=== PATIENT | male | born 1985 | race Caucasian/White ===

== ENCOUNTER 2018-02-26 16:07 | Emergency (ER) | payer MEDICAID, OTHER ==
[2018-02-26] MEDS: HYDROCODONE/APAP (5/325) TAB PO (17:12)
[2018-02-26] MEDS: KETOROLAC 60 MG INJ IM (17:23)
[2018-02-26] MEDS: LIDOCAINE 1% (MDV) 10 ML INJ INJ (17:24)
[2018-02-26] MEDS ORDERED: LIDOCAINE 1% (MDV) 20 ML INJ SC (17:30)
== END 2018-02-26 17:58 | disposition home or self-care (01) ==
LOC: FTE 16:07
DX: K04.7 Periapical abscess without sinus (principal)
CPT/HCPCS: 41800; 96372; 99284-25

== ENCOUNTER 2018-06-30 11:27 | Emergency (ER) | payer SELFPAY, MEDICAID ==
[2018-06-30] MEDS: HYDROCODONE/APAP (5/325) TAB PO (13:09)
== END 2018-06-30 14:07 | disposition home or self-care (01) ==
LOC: FTE 11:27
DX: S82.892A Other fracture of left lower leg, initial encounter for closed fracture (principal); S62.102A Fracture of unspecified carpal bone, left wrist, initial encounter for closed fracture; S90.01XA Contusion of right ankle, initial encounter; S90.511A Abrasion, right ankle, initial encounter; W01.0XXA Fall on same level from slipping, tripping and stumbling without subsequent striking against object, initial encounter; Y92.9 Unspecified place or not applicable
CPT/HCPCS: 73610; 73610-RT; 99283-25

== ENCOUNTER 2018-11-11 09:29 | Inpatient (IN) | payer MEDICAID ==
[2018-11-11] MEDS: LIDOCAINE 1% (MPF) 5 ML VIAL INFIL (10:27)
[2018-11-11 13:45] LABS: ADD MAN DIFF? NO
[2018-11-11] MEDS: CEFTRIAXONE 1 GM/50 ML (PMX) 50 ML IVPB (13:56)
[2018-11-11] MEDS: SOD CHLORIDE 0.9% 1,000 ML IV ×2 (13:57→18:39)
[2018-11-11 13:59] LABS: WHITE BLOOD COUNT 9.2 10^3/ul (4.8-10.8)
[2018-11-11 13:59] LABS: BASOPHILS % 0.4 % (0.0-2.0); EOSINOPHILS # 0.1 10^3/ul (0.0-0.5); EOSINOPHILS % 0.8 % (0.0-7.0); HEMATOCRIT 49.5 % (42.0-52.0); HEMOGLOBIN 16.7 g/dl (14.0-18.0); LYMPHOCYTES # 3.8 10^3/ul (0.8-2.9); LYMPHOCYTES % 41.1 % (15.0-51.0); MEAN CORPUSCULAR HEMOGLOBIN 28.4 pg (29.0-33.0); MEAN CORPUSCULAR HGB CONC 33.7 g/dl (32.0-37.0); MEAN CORPUSCULAR VOLUME 84.3 fl (82.0-101.0); MEAN PLATELET VOLUME 10.7 fl (7.4-10.4); MONOCYTE # 0.8 10^3/ul (0.3-0.9); MONOCYTES % 8.8 % (0.0-11.0); NEUTROPHIL # 4.5 10^3/ul (1.6-7.5); NEUTROPHILS % 48.5 % (39.0-77.0); PLATELET COUNT 293 10^3/UL (140-415); RED BLOOD COUNT 5.87 10^6/ul (4.70-6.10); RED CELL DISTRIBUTION WIDTH 13.5 % (11.5-14.5)
[2018-11-11 14:17] LABS: ALANINE AMINOTRANSFERASE 26 IU/L (13-69); ALBUMIN/GLOBULIN RATIO 1.11; ALKALINE PHOSPHATASE 105 IU/L (42-121); ANION GAP 16 (5-13); ASPARTATE AMINO TRANSFERASE 31 IU/L (15-46); BILIRUBIN,INDIRECT 0.3 mg/dl (0-1.1); BILIRUBIN,TOTAL 0.3 mg/dl (0.2-1.3); BLOOD UREA NITROGEN 13 mg/dl (7-20); CARBON DIOXIDE 28 mmol/L (21-31); CHLORIDE 98 mmol/L (97-110); CREATININE 0.89 mg/dl (0.61-1.24); Estimated GFR > 60 mL/min (>60); GLUCOSE 94 mg/dl (70-220); POTASSIUM 4.1 mmol/L (3.5-5.1); SODIUM 142 mmol/L (135-144); TOTAL PROTEIN 9.5 g/dl (6.1-8.1)
[2018-11-11] MEDS: VANCOMYCIN 1 GM (PMX) 250 ML IVPB (14:29)
[2018-11-11 14:36] LABS: C-REACTIVE PROTEIN < 0.5 mg/dl (0.0-0.9)
[2018-11-11] MEDS: ONDANSETRON 4 MG INJ IV (15:16)
[2018-11-11] MEDS: morphine 4 MG/ML VIAL IV (15:17)
[2018-11-11] MEDS ORDERED: ACETAMINOPHEN 325 MG TAB PO ×2 (15:30→17:00)
[2018-11-11] MEDS ORDERED: ONDANSETRON 4 MG INJ IV ×2 (15:30→17:00)
[2018-11-11 15:37] LABS: ERYTHROCYTE SEDIMENTATION RATE 15 mm/Hr (0-15)
[2018-11-11] MEDS ORDERED: morphine 2 MG INJ IV (17:00)
[2018-11-11] MEDS ORDERED: BISACODYL (EC) 5 MG TAB PO (17:00)
[2018-11-11] MEDS ORDERED: NACL 0.9% 3 ML SYG IV (17:00)
[2018-11-11] MEDS ORDERED: MAGNESIUM HYDROXIDE 30ML CUP PO (17:00)
[2018-11-11] MEDS ORDERED: DOCUSATE SODIUM 100 MG CAP PO (17:00)
[2018-11-11] MEDS ORDERED: VANCOMYCIN IV PER PHARMACY XX (19:00)
[2018-11-11] MEDS: PIPER-TAZO 3.375 GM IV (PMX) 100 ML IVPB ×2 (20:50→23:36)
[2018-11-11] MEDS: VANCOMYCIN 1 GM 250 ML IVPB (22:20)
[2018-11-12] MEDS: PIPER-TAZO 3.375 GM IV (PMX) 100 ML IVPB ×3 (05:02→18:17)
[2018-11-12] MEDS: VANCOMYCIN 1 GM 250 ML IVPB ×2 (05:40→15:23)
[2018-11-12] MEDS: SOD CHLORIDE 0.9% 1,000 ML IV ×2 (05:51→11:04)
[2018-11-12 06:28] LABS: ADD MAN DIFF? NO
[2018-11-12 06:39] LABS: WHITE BLOOD COUNT 6.2 10^3/ul (4.8-10.8)
[2018-11-12 06:39] LABS: BASOPHILS % 0.3 % (0.0-2.0); EOSINOPHILS # 0.1 10^3/ul (0.0-0.5); EOSINOPHILS % 1.1 % (0.0-7.0); HEMATOCRIT 40.8 % (42.0-52.0); HEMOGLOBIN 13.4 g/dl (14.0-18.0); LYMPHOCYTES # 2.4 10^3/ul (0.8-2.9); LYMPHOCYTES % 38.6 % (15.0-51.0); MEAN CORPUSCULAR HEMOGLOBIN 28.5 pg (29.0-33.0); MEAN CORPUSCULAR HGB CONC 32.8 g/dl (32.0-37.0); MEAN CORPUSCULAR VOLUME 86.8 fl (82.0-101.0); MONOCYTE # 0.7 10^3/ul (0.3-0.9); NEUTROPHILS % 48.7 % (39.0-77.0); PLATELET COUNT 248 10^3/UL (140-415); RED CELL DISTRIBUTION WIDTH 13.5 % (11.5-14.5)
[2018-11-12 07:19] LABS: ALANINE AMINOTRANSFERASE 28 IU/L (13-69); ALBUMIN 3.6 g/dl (3.3-4.9); ALBUMIN/GLOBULIN RATIO 1.05; ALKALINE PHOSPHATASE 81 IU/L (42-121); ANION GAP 12 (5-13); ASPARTATE AMINO TRANSFERASE 19 IU/L (15-46); BILIRUBIN,INDIRECT 0.1 mg/dl (0-1.1); BILIRUBIN,TOTAL 0.1 mg/dl (0.2-1.3); BLOOD UREA NITROGEN 15 mg/dl (7-20); CALCIUM 8.8 mg/dl (8.4-10.2); CARBON DIOXIDE 25 mmol/L (21-31); CHLORIDE 104 mmol/L (97-110); CREATININE 0.94 mg/dl (0.61-1.24); Estimated GFR > 60 mL/min (>60); GLUCOSE 104 mg/dl (70-220); POTASSIUM 4.2 mmol/L (3.5-5.1); SODIUM 141 mmol/L (135-144)
[2018-11-12 07:20] LABS: HEMOGLOBIN A1C 5.5 % (0-5.9)
[2018-11-12] MEDS: ENOXAPARIN 40 MG/0.4 ML SYG SC (09:15)
[2018-11-12 14:13] LABS: VANCOMYCIN,TROUGH 10.4 ug/ml (10.0-20.0)
[2018-11-12] MEDS ORDERED: VANCOMYCIN HCL 1.25 GM in SOD CHLORIDE 0.9% 250 ML IVPB (22:00)
[2018-11-17 11:47] LABS: PROCALCITONIN <0.10 ng/mL (<0.10)
== END 2018-11-12 21:00 | disposition left against medical advice (07) | DRG 540 ==
LOC: FTE 09:29 → 2NE 15:28
DX: M86.8X3 Other osteomyelitis, forearm (principal); L03.114 Cellulitis of left upper limb; M25.422 Effusion, left elbow
CPT/HCPCS: 36415; 73090; 73200; 73221; 80053; 80202; 83036; 83605; 84145; 84443; 85025; 85651; 86140; 87040; 87070; 93005; 96365; 96367; 96375; 99285-25